=== PATIENT | male | born 1940 | race Caucasian/White ===

== ENCOUNTER 2016-08-26 12:18 | Outpatient (RCR) | payer OTHER ==
[~2016-08-26 12:18] MED LIST: CIPRO 500MG TA500 MG PO; FLOMAX 0.40.4 MG/CAP PO; PERCOCET 325 MG1 TA2 PO; PHENERGAN 25 TA25 MG PO; PHENERGAN25 MG RC; TUMS500 MG PO; ZANTAC 150MG T150 MG PO; [UNRECOGNIZED DRUG - CODE] PO
== END 2016-11-24 | disposition still patient (30) ==
LOC: WSST
DX: R13.10 Dysphagia, unspecified (principal)

== ENCOUNTER 2016-12-24 12:59 | Outpatient (RCR) | payer OTHER | END 2016-12-24 13:05 | LOC: MKS.ESL.PT 12:59 | DX: Z53.9 Procedure and treatment not carried out, unspecified reason (principal) ==

== ENCOUNTER 2017-02-04 13:15 | Outpatient (RCR) | payer OTHER | END 2017-03-24 | disposition home or self-care (01) | LOC: MKS.ESL.PT | DX: G56.01 Carpal tunnel syndrome, right upper limb (principal); M54.5 Low back pain ==

== ENCOUNTER → 2018-10-19 | Outpatient (CLI) | payer BC | LOC: COL.RAD 09:04 | DX: C61 Malignant neoplasm of prostate (principal) | CPT/HCPCS: A9503 ==

== ENCOUNTER → 2018-10-24 | Outpatient (CLI) | payer BC | LOC: COL.RAD 10-16 13:00 | DX: C61 Malignant neoplasm of prostate (principal); M51.36 Other intervertebral disc degeneration, lumbar region; Z98.1 Arthrodesis status | CPT/HCPCS: Q9967 ==

== ENCOUNTER → 2018-10-30 | Outpatient (CLI) | payer BC | LOC: COL.VAS 09:39 | DX: R22.41 Localized swelling, mass and lump, right lower limb (principal) | CPT/HCPCS: Q9967 ==